=== PATIENT | male | born 1995 | race Caucasian/White ===

== ENCOUNTER 2016-05-26 08:18 | Emergency (ER) | payer OTHER ==
--- NOTE | 2016-05-26 09:09 | EDDOCDS ---
Physician Documentation [facility] Name: Ian Magaña Age: 21 yrs Sex: Male : 1995 Arrival Date: 05/26/2016 Time: 08:18 Bed I2 / M2 Private MD: Disposition: 05/26/16 08:54 Discharged to Home/Self Care. Impression: Low back pain. - Condition is Stable. - Discharge Instructions: Chronic Back Pain, Back Injury Prevention, Fdlt-[id number], Back Pain, Adult, Gvct-fx-Gsdc. - Prescriptions for Diclofenac Sodium 75 mg Oral Tablet, Delayed Release (E.C.) - take 1 tablet by ORAL route 2 times per day; 30 tablet. Robaxin- 750 750 mg Oral Tablet - take 1 tablet by ORAL route every 6 hours As needed; 40 tablet. - Medication Reconciliation, Local Pharmacy Hours form. - Follow up: Edmund Acuna [facility]; When: Today; Reason: Further diagnostic work-up, Recheck today's complaints, Continuance of care. - Problem is an ongoing problem. - Symptoms are unchanged. Historical: - Allergies: no known allergies; - Home Meds: 1. none - PMHx: none; - PSHx: none; - Social history: Smoking status: Patient states was never smoker of tobacco. No barriers to communication noted, The patient speaks fluent Indian, Speaks appropriately for age. - : The pt / caregiver states he / she is not on anticoagulants. Home medication list is obtained from the patient. - Exposure Risk Screening:: None identified. Vital Signs: 05/26 08:25 BP 135 / 81; Pulse 48; Resp 16; Temp 98.3(TE); Pulse Ox 99% on R/A; Weight 72.57 kg / mlb1 159.99 lbs (R); Height 5 ft. 8 in. (172.72 cm) (R); Pain 7/10; 08:25 Body Mass Index 24.33 (72.57 kg, 172.72 cm) mlb1 Signatures: Kenan Ratliff RN RN mlb1 Nicole Guerrero RN RN Lalo Uriostegui PA PA btw MTDD
--- NOTE | 2016-05-26 09:09 | EDDOCDS ---
Nurse's Notes [facility] Name: Ian Magaña Age: 21 yrs Sex: Male : 1995 Arrival Date: 05/26/2016 Time: 08:18 Bed I2 / M2 Private MD: Diagnosis: Low back pain Presentation: 05/26 08:23 Presenting complaint: Patient states: Back pain began two or three months ago. Acute mlb1 neurological deficits are not present. Mechanism of Injury: No Mechanism of Injury. Adult Sepsis Screening: The patient does not have new or worsening altered mentation. Patient's respiratory rate is less than 22. Systolic blood pressure is greater than 100. Patient has a qSOFA score of 0- Negative Sepsis Screen. Suicide/Homicide risk assessment- the patient denies having any suicidal and/or homicidal ideations and does not present with any other emotional, behavioral or mental health complaints. Status: The patient is an active duty customer service leader. Transition of care: patient was not received from another setting of care. 08:23 Acuity: VANESSA Level 5 mlb1 08:23 Method Of Arrival: Walkin/Carried/Asstd mlb1 Triage Assessment: 08:25 General: Appears in no apparent distress, Behavior is appropriate for age, cooperative. mlb1 Pain: Location: back Pain currently is 7 out of 10 on a pain scale. Pt Declines HIV testing. Musculoskeletal: Range of motion intact in all extremities. Historical: - Allergies: no known allergies; - Home Meds: 1. none - PMHx: none; - PSHx: none; - Social history: Smoking status: Patient states was never smoker of tobacco. No barriers to communication noted, The patient speaks fluent Niuean, Speaks appropriately for age. - : The pt / caregiver states he / she is not on anticoagulants. Home medication list is obtained from the patient. - Exposure Risk Screening:: None identified. Screenin:07 Screening information is obtained from the patient. Fall risk: No risks identified. jjr Assistance ADL's: requires no assistance with activities of daily living. Abuse/DV Screen: The patient / caregiver reports he/she is: not in a situation that causes fear, pain or injury. Nutritional screening: No deficits noted. Advance Directives: There is no active DNR order. home support is adequate. Assessment: 08:53 General: Appears uncomfortable. Pain: Complains of pain in coccyx, left lower back and mk4 right lower back Pain currently is 7 out of 10 on a pain scale. Awake, alert, oriented. Skin warm and dry. Moves all extremities. The patient / caregiver is instructed regarding the plan of care and ED course. Physical assessment to be completed by GABRIELA/DORY. 09:07 General: Appears in no apparent distress, Behavior is appropriate for age. jjr Neurological: No deficits noted. Respiratory: No deficits noted. Derm: No deficits noted. Vital Signs: 08:25 BP 135 / 81; Pulse 48; Resp 16; Temp 98.3(TE); Pulse Ox 99% on R/A; Weight 72.57 kg mlb1 (R); Height 5 ft. 8 in. (172.72 cm) (R); Pain 7/10; 08:25 Body Mass Index 24.33 (72.57 kg, 172.72 cm) [facility] Vitals: 08:25 Log In Time: May 26, 2016 at 08:16. [facility] ED Course: 08:19 Patient visited by Luigi Ty Reg. lg 08:19 Patient moved to Waiting lg 08:23 Patient visited by Kenan Ratliff, RN. mlb1 08:24 Triage Initiated mlb1 08:25 Lalo Cano PA is PHCP. btw 08:25 Johanne Mas MD is Attending Physician. btw 08:26 Patient visited by Kenan Ratliff, RN. mlb1 08:26 Patient moved to I2 / M2 mlb1 08:35 Patient visited by Llao Cano PA. btw 08:54 [facility] btw 09:07 No IV's were initiated during this patient's visit. No procedures done that require jjr assistance. Order Results: There are currently no results for this order. Outcome: 08:54 Discharge ordered by Provider. btw 09:07 Discharge Assessment: patient administered narcotics - no. The following High Risk jjr Discharge criteria are identified: None. Discharged to home ambulatory. Condition: stable. Discharge instructions given to patient, Instructed on discharge instructions, follow up and referral plans. medication usage, Demonstrated understanding of instructions, medications, Prescriptions given X 2. No special radiology studies were completed. Property sent home with patient. 09:08 Patient left the ED. jjr Signatures: Luigi Ty, Fabian Reg Kenan Miller RN RN mlb1 Nicole Guerrero, ABDOULAYE RN jjr Lalo Cano PA PA btw King, Margaret RN RN mk4 MTDD
--- NOTE | 2016-05-28 10:09 | EDDOCDS ---
Nurse's Notes [facility] Name: Ian Magaña Age: 21 yrs Sex: Male : 1995 Arrival Date: 05/26/2016 Time: 08:18 Bed I2 / M2 Private MD: Diagnosis: Low back pain Presentation: 05/26 08:23 Presenting complaint: Patient states: Back pain began two or three months ago. Acute mlb1 neurological deficits are not present. Mechanism of Injury: No Mechanism of Injury. Adult Sepsis Screening: The patient does not have new or worsening altered mentation. Patient's respiratory rate is less than 22. Systolic blood pressure is greater than 100. Patient has a qSOFA score of 0- Negative Sepsis Screen. Suicide/Homicide risk assessment- the patient denies having any suicidal and/or homicidal ideations and does not present with any other emotional, behavioral or mental health complaints. Status: The patient is an active duty software engineer web services. Transition of care: patient was not received from another setting of care. 08:23 Acuity: VANESSA Level 5 mlb1 08:23 Method Of Arrival: Walkin/Carried/Asstd mlb1 Triage Assessment: 08:25 General: Appears in no apparent distress, Behavior is appropriate for age, cooperative. mlb1 Pain: Location: back Pain currently is 7 out of 10 on a pain scale. Pt Declines HIV testing. Musculoskeletal: Range of motion intact in all extremities. Historical: - Allergies: no known allergies; - Home Meds: 1. none - PMHx: none; - PSHx: none; - Social history: Smoking status: Patient states was never smoker of tobacco. No barriers to communication noted, The patient speaks fluent Samoan, Speaks appropriately for age. - : The pt / caregiver states he / she is not on anticoagulants. Home medication list is obtained from the patient. - Exposure Risk Screening:: None identified. Screenin:07 Screening information is obtained from the patient. Fall risk: No risks identified. jjr Assistance ADL's: requires no assistance with activities of daily living. Abuse/DV Screen: The patient / caregiver reports he/she is: not in a situation that causes fear, pain or injury. Nutritional screening: No deficits noted. Advance Directives: There is no active DNR order. home support is adequate. Assessment: 08:53 General: Appears uncomfortable. Pain: Complains of pain in coccyx, left lower back and mk4 right lower back Pain currently is 7 out of 10 on a pain scale. Awake, alert, oriented. Skin warm and dry. Moves all extremities. The patient / caregiver is instructed regarding the plan of care and ED course. Physical assessment to be completed by PA/DORY. 09:07 General: Appears in no apparent distress, Behavior is appropriate for age. jjr Neurological: No deficits noted. Respiratory: No deficits noted. Derm: No deficits noted. Vital Signs: 08:25 BP 135 / 81; Pulse 48; Resp 16; Temp 98.3(TE); Pulse Ox 99% on R/A; Weight 72.57 kg mlb1 (R); Height 5 ft. 8 in. (172.72 cm) (R); Pain 7/10; 08:25 Body Mass Index 24.33 (72.57 kg, 172.72 cm) ml Vitals: 08:25 Log In Time: May 26, 2016 at 08:16. [facility] ED Course: 08:19 Patient visited by Luigi Ty Reg. lg 08:19 Patient moved to Waiting lg 08:23 Patient visited by Kenan Ratliff, RN. mlb1 08:24 Triage Initiated mlb1 08:25 Lalo Cano PA is PHCP. btw 08:25 Johanne Mas MD is Attending Physician. btw 08:26 Patient visited by Kenan Ratliff, RN. mlb1 08:26 Patient moved to I2 / M2 mlb1 08:35 Patient visited by Lalo Cano PA. btw 08:54 [facility] btw 09:07 No IV's were initiated during this patient's visit. No procedures done that require jjr assistance. 09:14 [facility] Payment Agreement was scanned into [employer] and attached to record. jp5 13:23 T-Sheet-- Draft Copy was scanned into [employer] and attached to record. gb Order Results: There are currently no results for this order. Outcome: 08:54 Discharge ordered by Provider. btw 09:07 Discharge Assessment: patient administered narcotics - no. The following High Risk jjr Discharge criteria are identified: None. Discharged to home ambulatory. Condition: stable. Discharge instructions given to patient, Instructed on discharge instructions, follow up and referral plans. medication usage, Demonstrated understanding of instructions, medications, Prescriptions given X 2. No special radiology studies were completed. Property sent home with patient. 09:08 Patient left the ED. jjr Signatures: Esme Stone, Reg Reg gb Luigi Ty, Reg Reg lg Kenan Ratliff RN RN mlb1 Nicole Guerrero RN RN jjr Lalo Cano PA PA btw King, Margaret, ABDOULAYE RN mk4 Charla Galindo jp5 Chart Complete MTDBill
--- NOTE | 2016-05-28 10:09 | EDDOCDS ---
Physician Documentation [facility] Name: Ian Magaña Age: 21 yrs Sex: Male : 1995 Arrival Date: 05/26/2016 Time: 08:18 Bed I2 / M2 Private MD: Disposition: 05/26/16 08:54 Discharged to Home/Self Care. Impression: Low back pain. - Condition is Stable. - Discharge Instructions: Chronic Back Pain, Back Injury Prevention, Flel-jb-Kzby, Back Pain, Adult, Uqah-yw-Itnl. - Prescriptions for Diclofenac Sodium 75 mg Oral Tablet, Delayed Release (E.C.) - take 1 tablet by ORAL route 2 times per day; 30 tablet. Robaxin- 750 750 mg Oral Tablet - take 1 tablet by ORAL route every 6 hours As needed; 40 tablet. - Medication Reconciliation, Local Pharmacy Hours form. - Follow up: Edmund Acuna [facility]; When: Today; Reason: Further diagnostic work-up, Recheck today's complaints, Continuance of care. - Problem is an ongoing problem. - Symptoms are unchanged. Historical: - Allergies: no known allergies; - Home Meds: 1. none - PMHx: none; - PSHx: none; - Social history: Smoking status: Patient states was never smoker of tobacco. No barriers to communication noted, The patient speaks fluent Burmese, Speaks appropriately for age. - : The pt / caregiver states he / she is not on anticoagulants. Home medication list is obtained from the patient. - Exposure Risk Screening:: None identified. Vital Signs: 05/26 08:25 BP 135 / 81; Pulse 48; Resp 16; Temp 98.3(TE); Pulse Ox 99% on R/A; Weight 72.57 kg / mlb1 159.99 lbs (R); Height 5 ft. 8 in. (172.72 cm) (R); Pain 7/10; 08:25 Body Mass Index 24.33 (72.57 kg, 172.72 cm) mlb1 MDM: 09:14 [facility] [place] Payment Agreement was scanned into [employer] and attached to record. jp5 09:14 Financial registration complete. jp5 13:23 T-Sheet-- Draft Copy was scanned into [employer] and attached to record. gb Signatures: Esme Stone, Fabian Reg Kenan Dacosta RN RN mlb1 Nicole Guerrero RN RN jjr Lalo Cano PA PA btw Price, Jennalee jp5 The chart was reviewed and I authenticate all verbal orders and agree with the evaluation and treatment provided.Attachments: :14 [facility] [place] Payment Agreement jp5 13:23 T-Sheet-- Draft Copy gb Chart Complete MTDD
--- NOTE | 2016-05-28 10:09 | EDDOCDS ---
Physician Documentation [facility] Name: Ian Magaña Age: 21 yrs Sex: Male : 1995 Arrival Date: 05/26/2016 Time: 08:18 Bed I2 / M2 Private MD: Disposition: 05/26/16 08:54 Discharged to Home/Self Care. Impression: Low back pain. - Condition is Stable. - Discharge Instructions: Chronic Back Pain, Back Injury Prevention, Frxz-bg-Uiyt, Back Pain, Adult, Gvfl-ck-Vnir. - Prescriptions for Diclofenac Sodium 75 mg Oral Tablet, Delayed Release (E.C.) - take 1 tablet by ORAL route 2 times per day; 30 tablet. Robaxin- 750 750 mg Oral Tablet - take 1 tablet by ORAL route every 6 hours As needed; 40 tablet. - Medication Reconciliation, Local Pharmacy Hours form. - Follow up: Edmund Acuna [facility]; When: Today; Reason: Further diagnostic work-up, Recheck today's complaints, Continuance of care. - Problem is an ongoing problem. - Symptoms are unchanged. Historical: - Allergies: no known allergies; - Home Meds: 1. none - PMHx: none; - PSHx: none; - Social history: Smoking status: Patient states was never smoker of tobacco. No barriers to communication noted, The patient speaks fluent German, Speaks appropriately for age. - : The pt / caregiver states he / she is not on anticoagulants. Home medication list is obtained from the patient. - Exposure Risk Screening:: None identified. Vital Signs: 05/26 08:25 BP 135 / 81; Pulse 48; Resp 16; Temp 98.3(TE); Pulse Ox 99% on R/A; Weight 72.57 kg / mlb1 159.99 lbs (R); Height 5 ft. 8 in. (172.72 cm) (R); Pain 7/10; 08:25 Body Mass Index 24.33 (72.57 kg, 172.72 cm) mlb1 MDM: 09:14 [facility] Payment Agreement was scanned into [email or web address] and attached to record. jp5 09:14 Financial registration complete. jp5 13:23 T-Sheet-- Draft Copy was scanned into [email or web address] and attached to record. gb Signatures: Esme Stone, Fabian Reg Kenan Dacosta RN RN mlb1 Nicole Guerrero RN RN jjr Lalo Cano PA PA btw Price, Jennalee jp5 The chart was reviewed and I authenticate all verbal orders and agree with the evaluation and treatment provided.Attachments: :14 [facility] Payment Agreement jp5 13:23 T-Sheet-- Draft Copy gb Chart Complete MTDD
== END 2016-05-26 09:08 | disposition home or self-care (01) ==
LOC: M ED 08:18
DX: M54.5 Low back pain (principal)

== ENCOUNTER 2017-10-05 12:14 | Emergency (ER) | payer OTHER ==
[2017-10-05 12:58] LABS: APPEARANCE, URINE HAZY (CLEAR); BACTERIA, URINE AUTO NEGATIVE (NEGATIVE); BILIRUBIN, URINE AUTO NEGATIVE (NEGATIVE); BLOOD, URINE BLOOD 3+ (NEGATIVE); COLOR, URINE YELLOW (YELLOW); GLUCOSE, URINE (UA) AUTO NEGATIVE (NEGATIVE); KETONE, URINE AUTO NEGATIVE (NEGATIVE); LEUKOCYTE ESTERASE, URINE AUTO NEGATIVE (NEGATIVE); MUCUS, URINE SMALL (NEGATIVE); NITRITE, URINE AUTO NEGATIVE (NEGATIVE); PROTEIN, URINE AUTO NEGATIVE (NEGATIVE); RBC, URINE AUTO TNTC /HPF (0-3); SPECIFIC GRAVITY URINE AUTO 1.028 (1.002-1.035); SQUAMOUS EPITHELIAL CELL UR AU 0 /HPF (0-6); UROBILINOGEN, URINE AUTO 0.2 mg/dL (0.0-2.0); WBC, URINE AUTO 2 /HPF (0-3)
[2017-10-05 15:43] LABS: CHLAMYDIA DNA AMPLIFICATION NEGATIVE (NEGATIVE); GC DNA AMPLIFICATION NEGATIVE (NEGATIVE)
== END 2017-10-05 14:44 | disposition home or self-care (01) ==
LOC: M ED 12:14
DX: N50.811 Right testicular pain (principal); N50.812 Left testicular pain
CPT/HCPCS: 76870